=== PATIENT | female | born 1985 | race Two or more races ===

== ENCOUNTER 2022-05-04 19:23 | Emergency (ER) | payer MEDICAID, OTHER ==
[~2022-05-04] VITALS: Ht 157.5 cm; Wt 86.0 kg
[2022-05-04 19:28] VITALS: BP 138/87
[2022-05-04 22:31] LABS: Urine Amorphous Crystal MOD /hpf (None Seen); Urine Bacteria FEW /hpf (None Seen); Urine Blood 1+ /uL (Negative); Urine Mucus FEW (None Seen); Urine Specific Gravity 1.033 (1.001-1.035); Urine WBC 1 /hpf (0 - 5)
[2022-05-04 23:07] LABS: Basophils # (auto) 0.1 10 ^3/uL (0-0.2); Basophils % (auto) 0.6 % (0.0-2.0); Eosinophils # (auto) 0.1 10 ^3/uL (0-0.8); Hematocrit 35.2 % (36.0-46.0); Hemoglobin 11.3 g/dL (12.2-16.2); Lymphocytes # (auto) 3.1 10 ^3/uL (0.4-5.4); Lymphocytes % (auto) 25.3 % (10.0-50.0); Mean Corpuscular Hemoglobin 26.9 pg (28.0-32.0); Mean Corpuscular Volume 83.9 fL (80.0-100.0); Monocytes # (auto) 0.8 10 ^3/uL (0-1.3); Monocytes % (auto) 6.3 % (0.0-12.0); Neutrophils # (auto) 8.1 10 ^3/uL (1.6-8.6); Neutrophils % (auto) 66.8 % (37.0-80.0); Red Blood Cells 4.19 10^6/uL (4.0-5.20); Red Cell Distribution Width 13.1 % (11.8-14.3); White Blood Cell 12.2 10^3/uL (4.4-10.8)
[2022-05-04 23:33] LABS: Albumin 3.5 g/dL (3.4-5.0); Calcium 8.4 mg/dL (8.5-10.1); Potassium 3.4 mmol/L (3.5-5.1)
[2022-05-04 23:35] LABS: BUN/Creatinine Ratio 13.8
[2022-05-04 23:38] LABS: Bilirubin, Total 0.4 mg/dL (0.2-1.0); Total Protein 7.3 g/dL (6.4-8.2)
[2022-05-04] MEDS ORDERED: NITR-87 PO (23:58)
== END 2022-05-05 00:15 | disposition home or self-care (01) ==
LOC: ER 19:23
DX: S30.1XXA Contusion of abdominal wall, initial encounter (principal); S00.83XA Contusion of other part of head, initial encounter; R07.89 Other chest pain; N39.0 Urinary tract infection, site not specified; I10 Essential (primary) hypertension; Z79.899 Other long term (current) drug therapy; Y04.2XXA Assault by strike against or bumped into by another person, initial encounter; Y93.89 Activity, other specified; Y92.89 Other specified places as the place of occurrence of the external cause; Y99.8 Other external cause status
CPT/HCPCS: 36415; 70450; 71045; 80053; 81001; 81025; 84484; 85025; 93005